=== PATIENT | male | born 1970 | race Caucasian/White ===

== ENCOUNTER → 2019-03-21 | Outpatient (CLI) | payer MEDICAID ==
--- NOTE | 2019-03-21 22:30 | CT ---
EXAMINATION TYPE: CT sinus wo con DATE OF EXAM: 03/21/2019 COMPARISON: NONE HISTORY: Chronic sinusitis per order. Facial pain and congestion. CT DLP: 599 mGycm. Automated Exposure Control for Dose Reduction was Utilized. TECHNIQUE: CT scan of the sinuses is performed without contrast, axial images are obtained, coronal r eformatted images are also reviewed. FINDINGS: Hypoplastic or nonformed right frontal sinus. Remainder paranasal sinuses are clear without suspicious opacification or air-fluid levels The ostiomeatal complex is patent bilaterally on coron al image 25. Nasal septum is deviated to left of midline. Visualized portion of mastoid air cells show no abnormal opacification. The globes are intact bilate rally. IMPRESSION: The sinuses are clear and the ostiomeatal complex is patent bilaterally.
== END ==
LOC: RADCTMAIN 16:49
PROVIDERS: ATTEND Otolaryngology
DX: J32.9 Chronic sinusitis, unspecified (principal)
CPT/HCPCS: 70486

== ENCOUNTER 2020-08-14 09:59 | Day surgery (SDC) | payer MEDICAID ==
[2020-08-12 09:34] VITALS: BMI 23.7
[2020-08-14 10:48] VITALS: TEMP 98.5
[2020-08-14] MEDS ORDERED: LACTATED RINGERS 1,000 ML IV ONE (10:57)
[2020-08-14] MEDS ORDERED: LIDOCAINE 1% (10MG/ML) FOR IV START INTRADERMA ONE (10:57)
[2020-08-14] MEDS ORDERED: LIDOCAINE 1% INJ 10MG/ML (20 ML MDV) ONE (11:26)
[2020-08-14] MEDS ORDERED: PROPOFOL 10 MG/ML 20 ML VIAL IV ONE (11:26)
--- NOTE | 2020-08-14 12:00 | P.PCN ---
Date of Procedure: 08/14/20 Description of Procedure: BRIEF HISTORY: Patient is a 49-year-old male presenting for outpatient colonoscopy for evaluation of positive Cologuard. No prior colonoscopies reported. No change in bowel habits. No family history of colon cancer. PROCEDURE PERFORMED: Colonoscopy with polypectomy. PREOPERATIVE DIAGNOSIS: Positive Cologuard, no prior colonoscopy. ESTIMATED BLOOD LOSS: Minimal. IV sedation per Anesthesia. PROCEDURE: After informed consent was obtained, the patient, was brought into the endoscopy unit. IV sedation was administered by Anesthesia under continuous monitoring. Digital rectal examination was normal. Initially the Olympus CF-190 flexible video colonoscope was then inserted in the rectum, gradually advanced into the cecum without any difficulty. Careful examination was performed as the scope was gradually being withdrawn. Ileocecal valve and the appendiceal orifice were visualized and appeared normal. Prep was excellent. Mucosa of the cecum, ascending colon, transverse colon, descending colon, sigmoid colon, and rectum appeared normal. A few scattered diverticula noted in the sigmoid colon. Diminutive 1 mm ascending colon polyp removed with cold forcep polypectomy. Flat polyps in the descending colon and sigmoid colon measuring 3 and 4 mm in size removed with cold snare polypectomy, low-grade internal hemorrhoids. Retroflexion was performed in the rectum and no lesions were seen. The patient tolerated the procedure well. IMPRESSION: 2 flat polyps removed with cold snare polypectomy from the descending colon and sigmoid colon. Diminutive ascending colon polyp removed with cold forcep polypectomy. Mild sigmoid diverticulosis. RECOMMENDATIONS: Findings of this examination were discussed with the patient and his family. Okay to resume diet. Okay to resume medications. Await pathology from polypectomies. Recommend repeat colonoscopy in 5 years for history of colon polyps pending pathology from polypectomies.
[2020-08-14 12:09] VITALS: BP 112/72; PULSE 78; RESP 18
== END 2020-08-14 12:24 | disposition home or self-care (01) ==
LOC: ORWHC2ENDO 09:59
PROVIDERS: ATTEND Internal Medicine
DX: D12.4 Benign neoplasm of descending colon (principal); K63.5 Polyp of colon; K57.30 Diverticulosis of large intestine without perforation or abscess without bleeding; K64.8 Other hemorrhoids; J45.909 Unspecified asthma, uncomplicated; Z79.899 Other long term (current) drug therapy; Z98.890 Other specified postprocedural states; Z91.048 Other nonmedicinal substance allergy status
CPT/HCPCS: 88305; 45380; 45385; J2001; J2704

== ENCOUNTER → 2021-04-24 | Outpatient (CLI) | payer MEDICAID ==
--- NOTE | 2021-04-24 11:29 | US ---
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 Left groin/hip palpable lump x coup le years Left groin/hip: superficial 1.5 x 0.4 x 3.2cm hypoechoic area seen There is old full well-circumscribed 3.2 cm lesion on long axis just below the dermal layer in the le ft groin or hip at site of palpable abnormality. IMPRESSION: As above. Imaging findings and history of palpable lesion for a couple years favor nonag gressive etiology such as benign lipoma. If this lesion becomes painful or is felt to enlarge repeat imaging would be warranted.
== END | disposition home or self-care (01) ==
LOC: RADUSWWP 10:54
PROVIDERS: ATTEND Family Medicine
DX: D17.30 Benign lipomatous neoplasm of skin and subcutaneous tissue of unspecified sites (principal)

== ENCOUNTER → 2024-08-10 | Outpatient (CLI) | payer BC ==
--- NOTE | 2024-08-10 19:59 | CT ---
EXAMINATION TYPE: CT chest wo con DATE OF EXAM: 08/10/2024 5:48 PM COMPARISON: None. CLINICAL INDICATION: Male, 53 years old with history of R06.09 DYSPNEA; PHH, DYSPNEA TECHNIQUE: Multiple axial images were obtained through the chest. Sagittal and coronal reformats were created for review. MIP was performed on a separate workstation. CT DLP: 570 mGycm, Automated exposure control for dose reduction was used. FINDINGS: LUNGS/ PLEURA: The lung parenchyma appears unremarkable. Tiny 3 mm nodule left lung apex (image 107/ 127). AIRWAY: Patent and unremarkable. HEART: Size within normal limits. MEDIASTINUM: No gross evidence of adenopathy. VASCULATURE: No aortic aneurysm. MUSCULOSKELETAL: No acute osseous abnormalities SOFT TISSUES/LYMPH NODES: Unremarkable. LOWER NECK: No significant findings. UPPER ABDOMEN: No significant findings. IMPRESSION: No acute abnormality in the chest or CT findings to explain reported symptoms. [facility], , 08/10/2024 7:56 PM
== END | disposition home or self-care (01) ==
LOC: RADCTMAIN 17:21
PROVIDERS: ATTEND Family Medicine
DX: R06.09 Other forms of dyspnea (principal)
CPT/HCPCS: 71250